=== PATIENT | male | born 1970 | race Caucasian/White ===

== ENCOUNTER 2016-09-04 07:22 | Emergency (ER) | payer MEDICAID ==
[~2016-09-04] VITALS: Ht 182.9 cm; Wt 139.0 kg
[2016-09-04] MEDS ORDERED: ONDANSETRON 2MG/ML, 2ML IVPush ONE (08:00)
[2016-09-04] MEDS ORDERED: SODIUM CHLORIDE FLUSH 10ML SYR IVF ONE (08:00)
[2016-09-04] MEDS ORDERED: SODIUM CHLORIDE 0.9% 1,000ML IVBOLUS ONE (08:00)
[2016-09-04] MEDS ORDERED: FAMOTIDINE 20 MG/2 ML IVP ONE (08:00)
[2016-09-04] MEDS ORDERED: MORPHINE SULFATE 4 MG/ML, 1ML IVPush PRN (08:00)
[2016-09-04] MEDS ORDERED: MORPHINE SULFATE 4 MG/ML, 1ML ONE (08:06)
[2016-09-04] MEDS ORDERED: ONDANSETRON 2MG/ML, 2ML ONE (08:06)
[2016-09-04] MEDS ORDERED: FAMOTIDINE 20 MG/2 ML ONE (08:06)
[2016-09-04 08:31] LABS: IS PT STATUS REG ER OR PRE ER? YES
[2016-09-04 08:33] LABS: ASPARTATE AMINO TRANSFERASE 28 U/L (15-37); BLOOD UREA NITROGEN 8 mg/dL (7-18)
[2016-09-04] MEDS ORDERED: OMNIPAQUE 350 MG/ML, 150 ML BOTTLE ONE (09:17)
[2016-09-04] MEDS ORDERED: KETOROLAC 30 MG/1 ML ONE (09:38)
[2016-09-04 09:59] VITALS: BP 138/88
[2016-09-04] MEDS ORDERED: KETOROLAC 30 MG/1 ML IVPush ONE (10:00)
== END 2016-09-04 10:18 | disposition home or self-care (01) ==
LOC: ED 08:40
DX: R10.13 Epigastric pain (principal); R10.12 Left upper quadrant pain; R11.2 Nausea with vomiting, unspecified; R53.1 Weakness; I10 Essential (primary) hypertension
CPT/HCPCS: 36415; 71010; 71275; 74177; 80053; 81003; 83690; 84484; 85025; 85379; 85610; 85730; 86850; 86900; 93005; 96361; 96374; 96375; 99285; J1885; J2405; J7030; Q9967; S0028

== ENCOUNTER 2016-09-11 11:38 | Emergency (ER) | payer MEDICAID ==
[~2016-09-11] VITALS: Ht 185.4 cm; Wt 134.3 kg
[2016-09-11 11:42] VITALS: BP 152/89
[2016-09-11] MEDS ORDERED: IBUPROFEN 200 MG TABLET ONE (12:23)
[2016-09-11] MEDS ORDERED: IBUPROFEN 200 MG TABLET PO ONE (12:30)
== END 2016-09-11 12:57 | disposition home or self-care (01) ==
LOC: ED 12:51
DX: S93.492A Sprain of other ligament of left ankle, initial encounter (principal); I10 Essential (primary) hypertension; W01.0XXA Fall on same level from slipping, tripping and stumbling without subsequent striking against object, initial encounter; Y93.89 Activity, other specified; Y99.8 Other external cause status; Y92.89 Other specified places as the place of occurrence of the external cause
CPT/HCPCS: 99284

== ENCOUNTER 2017-08-14 02:44 | Emergency (ER) | payer SELFPAY ==
[~2017-08-14] VITALS: Ht 185.4 cm; Wt 104.0 kg
[2017-08-14 02:46] VITALS: BP 118/81
[2017-08-14 03:24] LABS: BASOPHILS # (AUTO) 0.07 x10^3/uL (0-0.1); BASOPHILS % (AUTO) 1 % (0-1); EOSINOPHILS # (AUTO) 0.03 x10^3/uL (0-0.4); EOSINOPHILS % (AUTO) 0 % (1-7); LYMPHOCYTES # (AUTO) 1.76 x10^3/uL (1-3.4); LYMPHOCYTES % (AUTO) 18 % (22-44); MD NO; MEAN CORPUSCULAR HEMOGLOBIN 31.8 pg (27.5-34.5); MEAN CORPUSCULAR HGB CONC 34.3 g/dL (33.2-36.2); MEAN CORPUSCULAR VOLUME 92.8 fL (81-97); MEAN PLATELET VOLUME 8.2 fL (7.4-10.4); MONOCYTES # (AUTO) 0.97 x10^3/uL (0.2-0.8); MONOCYTES % (AUTO) 10 % (2-9); NEUTROPHILS # (AUTO) 7.04 x10^3/uL (1.8-6.8); NEUTROPHILS % (AUTO) 71 % (42-75); PLATELET COUNT 319 x10^3/uL (130-400); RED BLOOD COUNT 4.67 x10^6/uL (4.38-5.82); RED CELL DISTRIBUTION WIDTH 13.9 % (9.4-14.8)
[2017-08-14] MEDS ORDERED: ASPIRIN 81 MG TABLET CHEW PO ONE (03:30)
[2017-08-14] MEDS ORDERED: LORazepam 1MG TABLET PO ONE (03:30)
[2017-08-14 03:35] LABS: ALBUMIN 3.7 g/dL (3.4-5.0); ANION GAP 11 mmol/L (5-15); CALCIUM 9.1 mg/dL (8.5-10.1); CHLORIDE 105 mmol/L (98-107); CREATININE 1.13 mg/dL (0.7-1.3)
[2017-08-14 03:39] LABS: TROPONIN I < 0.015 ng/mL (0.000-0.045)
[2017-08-14] MEDS ORDERED: ASPIRIN 81 MG TABLET CHEW ONE (03:58)
[2017-08-14] MEDS ORDERED: LORazepam 1MG TABLET ONE (03:58)
== END 2017-08-14 04:52 | disposition home or self-care (01) ==
LOC: ED 04:46
DX: R07.89 Other chest pain (principal); G89.11 Acute pain due to trauma; F14.10 Cocaine abuse, uncomplicated; I10 Essential (primary) hypertension
CPT/HCPCS: 36415; 71045; 80048; 82040; 84484; 85025; 93005; 99285